=== PATIENT | female | born 1975 | race Caucasian/White ===

== ENCOUNTER 2023-02-03 10:33 | Emergency (ER) | payer SELFPAY ==
[~2023-02-03] VITALS: Ht 160 cm; Wt 65.8 kg
[2023-02-03 10:50] VITALS: BP 113/72
[2023-02-03] MEDS ORDERED: LIDOCAINE VISCOUS 2% UD 15 ML UDC MM ONE (11:00)
[2023-02-03] MEDS ORDERED: LIDOCAINE VISCOUS 2% UD 15 ML UDC ONE (11:08)
[2023-02-03] MEDS ORDERED: BENZ9GEL MM (11:16)
--- NOTE | 2023-02-03 11:30 | NUR ---
Patient discharged to home in stable condition. Written and verbal after care instructions given. Patient verbalizes understanding of instruction.
== END 2023-02-03 12:01 | disposition home or self-care (01) ==
LOC: ER 10:42
DX: S00.511A Abrasion of lip, initial encounter (principal); J45.909 Unspecified asthma, uncomplicated; Z90.89 Acquired absence of other organs; W01.0XXA Fall on same level from slipping, tripping and stumbling without subsequent striking against object, initial encounter; Y93.89 Activity, other specified; Y92.89 Other specified places as the place of occurrence of the external cause; Y99.8 Other external cause status

== ENCOUNTER 2023-07-16 03:08 | Emergency (ER) | payer OTHER ==
[~2023-07-16] VITALS: Ht 154.9 cm; Wt 81.6 kg
[~2023-07-16 03:08] MED LIST: BENZ9GEL MM
[2023-07-16] MEDS ORDERED: METHOCARBAMOL (500MG) 500 MG TABLET PO ONE (04:30)
[2023-07-16] MEDS ORDERED: IBUPROFEN 600 MG TABLET PO ONE (04:30)
[2023-07-16] MEDS ORDERED: IBUPROFEN 600 MG TABLET ONE (04:31)
[2023-07-16] MEDS ORDERED: METHOCARBAMOL (500MG) 500 MG TABLET ONE (04:31)
[2023-07-16] MEDS ORDERED: IBUP-1953 PO (05:57)
[2023-07-16] MEDS ORDERED: METH-647 PO (05:57)
[2023-07-16 09:22] VITALS: BP 111/70; TEMP 98.1; O2SAT 100
== END 2023-07-16 09:22 | disposition home or self-care (01) ==
LOC: ER 03:10 → EDBD 03:10 → ER 09:22
DX: S13.8XXA Sprain of joints and ligaments of other parts of neck, initial encounter (principal); S20.219A Contusion of unspecified front wall of thorax, initial encounter; S60.221A Contusion of right hand, initial encounter; J45.909 Unspecified asthma, uncomplicated; Z98.890 Other specified postprocedural states; Z79.899 Other long term (current) drug therapy; V49.9XXA Car occupant (driver) (passenger) injured in unspecified traffic accident, initial encounter; Y93.89 Activity, other specified; Y92.89 Other specified places as the place of occurrence of the external cause; Y99.8 Other external cause status
CPT/HCPCS: 71045-TC; 72050-TC; 72125-TC; 73130-TC

== ENCOUNTER 2023-07-23 18:17 | Emergency (ER) | payer OTHER ==
[~2023-07-23] VITALS: Ht 160 cm; Wt 68.0 kg
[~2023-07-23 18:17] MED LIST changes: +IBUP-1953 PO; +METH-647 PO
[2023-07-23 19:04] VITALS: BP 114/73; TEMP 98.2; O2SAT 98
[2023-07-23] MEDS ORDERED: KETO10TA2 PO (21:56)
[2023-07-23] MEDS ORDERED: GABA-532 PO (21:56)
== END 2023-07-23 22:05 | disposition home or self-care (01) ==
LOC: ER 18:21
DX: G56.03 Carpal tunnel syndrome, bilateral upper limbs (principal); J45.909 Unspecified asthma, uncomplicated; Z79.899 Other long term (current) drug therapy; Z98.890 Other specified postprocedural states

== ENCOUNTER 2023-09-23 15:42 | Emergency (ER) | payer OTHER ==
[~2023-09-23] VITALS: Ht 160 cm; Wt 66.2 kg
[~2023-09-23 15:42] MED LIST changes: +GABA-532 PO; +KETO10TA2 PO
[2023-09-23 15:49] VITALS: BP 113/87; TEMP 98.7; O2SAT 100
[2023-09-23] MEDS ORDERED: HYDR28.32 TP (16:33)
== END 2023-09-23 16:39 | disposition home or self-care (01) ==
LOC: ER 15:46
DX: S00.86XA Insect bite (nonvenomous) of other part of head, initial encounter (principal); R22.0 Localized swelling, mass and lump, head; J45.909 Unspecified asthma, uncomplicated; Z79.899 Other long term (current) drug therapy; Z90.49 Acquired absence of other specified parts of digestive tract; Z98.890 Other specified postprocedural states; Z60.2 Problems related to living alone; W57.XXXA Bitten or stung by nonvenomous insect and other nonvenomous arthropods, initial encounter; Y93.89 Activity, other specified; Y92.89 Other specified places as the place of occurrence of the external cause; Y99.8 Other external cause status